=== PATIENT | female | born 1945 | race Caucasian/White ===

== ENCOUNTER 2020-08-03 12:09 | Outpatient (CLI) | payer MEDICARE, OTHER, SELFPAY ==
--- NOTE | 2020-08-03 12:20 | XRR_ITS ---
PROCEDURE INFORMATION: Exam: XR Right Hip Exam date and time: 08/03/2020 1:00 PM Age: 75 years old Clinical indication: Hip pain; Right hip; Patient HX: HX of breast cancer; Additional info: Right hip pain TECHNIQUE: Imaging protocol: XR Right hip. Views: 1 view hip with pelvis when performed. COMPARISON: No relevant prior studies available. FINDINGS: Bones/joints: Unremarkable. No acute fracture. Soft tissues: Unremarkable. XR/XR hip RT 2-3V wo/w pel* [id number] IMPRESSION: No acute findings.
--- NOTE | 2020-08-03 12:20 | XRR_ITS ---
PROCEDURE INFORMATION: Exam: XR Lumbosacral Spine Exam date and time: 08/03/2020 1:02 PM Age: 75 years old Clinical indication: Low back pain; Patient HX: HX of breast cancer; Additional info: Right knee hip pain TECHNIQUE: Imaging protocol: XR of the lumbosacral spine. Views: 2 or 3 views. COMPARISON: No relevant prior studies available. FINDINGS: Bones/joints: No acute fracture. Trace levoscoliosis. L5-S1 disc space narrowing. Soft tissues: Unremarkable. XR/XR lumbar spine 2-3V* [id number] IMPRESSION: No acute findings. Recommend follow-up bone scan or MRI if there is clinical concern for skeletal metastasis.
--- NOTE | 2020-08-03 12:20 | XRR_ITS ---
PROCEDURE INFORMATION: Exam: XR Right Knee Exam date and time: 08/03/2020 1:02 PM Age: 75 years old Clinical indication: Pain; Knee; Right; Patient HX: HX of breast cancer; Additional info: R knee pain TECHNIQUE: Imaging protocol: XR Right knee. Views: 1 or 2 views. COMPARISON: No relevant prior studies available. FINDINGS: Bones/joints: Normal. Soft tissues: Normal. XR/XR knee RT 1-2V [id number] IMPRESSION: No acute findings.
== END 2020-08-03 12:10 | disposition home or self-care (01) ==
LOC: RAD 12:16
PROVIDERS: PCP Family Medicine; Visit Provider Family Medicine
DX: M25.561 Pain in right knee (principal); M25.551 Pain in right hip; Z85.3 Personal history of malignant neoplasm of breast; M54.5 Low back pain
CPT/HCPCS: 72100; 73502; 73560

== ENCOUNTER 2020-08-09 09:11 | Outpatient (CLI) | payer MEDICARE, OTHER, SELFPAY ==
--- NOTE | 2020-08-09 09:18 | NM_ITS ---
WS: [id number] NUCLEAR MEDICINE WHOLE BODY BONE SCAN HISTORY: HX OF BREAST CANCER/R KNEE PAIN/R HIP PAIN COMPARISON: None available. TECHNIQUE: The patient was injected with 26.0 mCi of Technetium 99m HDP and serial whole-body scintig radha have been performed with anterior and posterior images. Focal intense rounded uptake within the eighth anterior LEFT rib. The remaining bone scan is negative . There are no areas of abnormal uptake or photopenia in the RIGHT lower extremity to correspond to t he area of pain. There is a small amount of increased uptake at the knees, LEFT greater than RIGHT fr om arthritis. Very mild LEFT curvature lumbar spine. Normal soft tissue and renal uptake. NM/NM bone scan whole body* [id number] IMPRESSION: 1. No evidence for metastatic disease to the RIGHT lower extremity. 2. Single focal intense uptake within the anterior LEFT eighth rib. Due to thi s single focus of abnormality favor this is probably a rib fracture. Rib radiog raphs obtained also at the same time demonstrate this is likely a healing rib f racture.
--- NOTE | 2020-08-09 11:54 | XR_ITS ---
WS: [id number] LEFT RIBS, MULTIPLE VIEWS HISTORY: BONE SCAN COMPARISON, UPTAKE IN LEFT RIB COMPARISON: Bone scan 08/09/2020. Ribs: LEFT ribs are imaged. Seen only on one view with possible healing fracture involving the anteri or LEFT eighth rib. Patient does describe trauma to this rib a few weeks ago. Lungs and mediastinum: Visualized LEFT lung is clear. Mild atherosclerosis aorta. XR/XR ribs LT 2V* [id number] IMPRESSION: 1. Abnormality in the anterior LEFT eighth rib radiographically is probably a healing rib fracture. 2. No bone destruction.
== END 2020-08-09 09:12 | disposition home or self-care (01) ==
LOC: RAD 09:16
PROVIDERS: PCP Family Medicine; Visit Provider Family Medicine
DX: Z85.3 Personal history of malignant neoplasm of breast (principal); M25.561 Pain in right knee; M25.551 Pain in right hip
CPT/HCPCS: 71100; 78306; A9561

== ENCOUNTER → 2020-08-25 08:36 | Outpatient (BNVA) | payer MEDICARE, OTHER, SELFPAY | PROVIDERS: PCP Family Medicine; Referring Provider Family Medicine; Visit Provider Specialist | DX: G89.29 Other chronic pain (principal); M25.551 Pain in right hip; M54.5 Low back pain | CPT/HCPCS: 73502 ==

== ENCOUNTER → 2020-08-26 09:34 | Outpatient (BNVA) | payer MEDICARE, OTHER, SELFPAY | PROVIDERS: PCP Family Medicine; Referring Provider Specialist; Visit Provider Anesthesiology Pain Medicine | DX: M51.17 Intervertebral disc disorders with radiculopathy, lumbosacral region (principal); Z79.891 Long term (current) use of opiate analgesic; Z85.3 Personal history of malignant neoplasm of breast | CPT/HCPCS: 99205 ==

== ENCOUNTER 2020-08-31 14:40 | Outpatient (RCR) | payer MEDICARE, OTHER, SELFPAY | END 2020-09-10 23:59 | disposition home or self-care (01) | LOC: SPT 14:40 | PROVIDERS: PCP Family Medicine; Referring Provider Specialist; Visit Provider Specialist | DX: M54.5 Low back pain (principal) | CPT/HCPCS: 97110; 97161 ==

== ENCOUNTER 2020-09-07 15:21 | Outpatient (CLI) | payer MEDICARE, OTHER, SELFPAY ==
--- NOTE | 2020-09-07 15:31 | XRR_ITS ---
PROCEDURE INFORMATION: Exam: XR Right Knee Exam date and time: 09/07/2020 3:32 PM Age: 75 years old Clinical indication: Pain; Knee; Bilateral; Additional info: Medial right knee pain TECHNIQUE: Imaging protocol: XR Right knee. Views: 3 views. COMPARISON: CR XR knee RT 1-2V [id number] 08/03/2020 12:46 PM FINDINGS: Bones/joints: Negative for acute bony abnormality Soft tissues: Normal. XR/XR knee RT 3V* [id number] IMPRESSION: No acute findings.
--- NOTE | 2020-09-07 15:31 | XRR_ITS ---
PROCEDURE INFORMATION: Exam: XR Left Knee Exam date and time: 09/07/2020 3:32 PM Age: 75 years old Clinical indication: Pain; Knee; Bilateral; Additional info: Left knee pain TECHNIQUE: Imaging protocol: XR Left knee. Views: 3 views. COMPARISON: NM bone scan whole body* [id number] 08/09/2020 9:18 AM FINDINGS: Bones/joints: Negative for acute bony abnormality. Soft tissues: Normal. XR/XR knee LT 3V* [id number] IMPRESSION: No acute findings.
== END 2020-09-07 15:22 | disposition home or self-care (01) ==
PROVIDERS: PCP Family Medicine; Visit Provider Family Medicine
DX: M25.562 Pain in left knee (principal); M25.561 Pain in right knee
CPT/HCPCS: 73562; 80048

== ENCOUNTER 2020-09-11 06:00 | Outpatient (RCR) | payer MEDICARE, OTHER, SELFPAY | END 2020-10-11 23:59 | disposition home or self-care (01) | LOC: SPT 06:00 | PROVIDERS: PCP Family Medicine; Referring Provider Specialist; Visit Provider Specialist | DX: M54.5 Low back pain (principal) | CPT/HCPCS: 97110 ==

== ENCOUNTER → 2020-09-23 10:57 | Outpatient (BNVA) | payer MEDICARE, OTHER, SELFPAY | PROVIDERS: PCP Family Medicine; Visit Provider Anesthesiology Pain Medicine | DX: M51.17 Intervertebral disc disorders with radiculopathy, lumbosacral region (principal); M51.16 Intervertebral disc disorders with radiculopathy, lumbar region; M25.561 Pain in right knee; Z79.891 Long term (current) use of opiate analgesic | CPT/HCPCS: 99214 ==

== ENCOUNTER → 2020-10-05 08:42 | Outpatient (BNVA) | payer MEDICARE, OTHER, SELFPAY | PROVIDERS: PCP Family Medicine; Visit Provider Family Medicine | DX: Z13.6 Encounter for screening for cardiovascular disorders (principal); M25.569 Pain in unspecified knee | CPT/HCPCS: 80053; 80061; 85025 ==

== ENCOUNTER → 2020-10-21 10:05 | Outpatient (BNVA) | payer MEDICARE, OTHER, SELFPAY | PROVIDERS: PCP Family Medicine; Visit Provider Anesthesiology Pain Medicine | DX: M51.16 Intervertebral disc disorders with radiculopathy, lumbar region (principal) | CPT/HCPCS: 99214 ==

== ENCOUNTER 2020-11-01 14:29 | Outpatient (CLI) | payer MEDICARE, OTHER, SELFPAY ==
--- NOTE | 2020-11-01 | MR_ITS ---
WS: [id number] MRI LUMBAR SPINE NONCONTRAST TECHNIQUE: Sagittal T1, T2 and STIR imaging. Axial T1 and T2 imaging. CLINICAL INFORMATION: INTERVERTEBRAL DISC DISORDERS COMPARISON: None. FINDINGS: Mild lumbar curve. No acute compression. No high-grade central canal narrowing. L1-L2: Mild annular bulging. Tiny left pericentral protrusion. Spinal canal and foramen are patent. M ild facet arthropathy. L2-L3: No significant disc bulging. Mild facet arthropathy. Spinal canal and foramen are patent. L3-L4: Mild annular bulging with slight effacement of ventral thecal sac. Encroachment traversing L4 nerve roots bilaterally. Mild facet arthropathy. Mild right and no significant left foraminal narrowi ng. Mild facet arthropathy. L4-L5: Mild disc bulging with slight impingement on the left subarticular recess and traversing left L5 nerve root. Mild facet arthropathy.Mild central canal stenosis. Foramen are patent. L5-S1: Small central disc protrusion with slight effacement of the ventral thecal sac. Slight impinge ment on the traversing left greater than right S1 nerve roots. Mild left and no significant right for aminal narrowing. Visualized pelvic bony structures: Normal. Paravertebral soft tissues: Normal. MR/MR lumbar spine wo con* [id number] IMPRESSION: 1. Mild lumbar curve. No acute compression. No high-grade central canal stenos is. 2. Mild central canal stenosis L3-L4 and L4-L5. 3. Left eccentric disc bulging L4-5 impinges the traversing left L5 nerve root in the subarticular recess. 4. Annular bulging L3-4 slightly impinges the traversing L4 nerve roots bilate rally. 5. Small shallow central disc protrusion L5-S1 with slight contact of the lisa ersing left S1 nerve root. Mild left L5-S1 foraminal narrowing. 6. Mild right L3-4 foraminal narrowing with right eccentric disc bulging.
== END 2020-11-01 14:30 | disposition home or self-care (01) ==
PROVIDERS: PCP Family Medicine; Visit Provider Anesthesiology Pain Medicine
DX: M51.16 Intervertebral disc disorders with radiculopathy, lumbar region (principal); M48.061 Spinal stenosis, lumbar region without neurogenic claudication; M51.26 Other intervertebral disc displacement, lumbar region; M51.27 Other intervertebral disc displacement, lumbosacral region
CPT/HCPCS: 72148

== ENCOUNTER → 2020-11-18 13:06 | Outpatient (BNVA) | payer MEDICARE, OTHER, SELFPAY | PROVIDERS: PCP Family Medicine; Visit Provider Anesthesiology Pain Medicine | DX: M51.16 Intervertebral disc disorders with radiculopathy, lumbar region (principal); M25.561 Pain in right knee; M25.562 Pain in left knee | CPT/HCPCS: 99214 ==

== ENCOUNTER → 2021-03-29 13:54 | Outpatient (BNVA) | payer MEDICARE, OTHER, SELFPAY | PROVIDERS: PCP Family Medicine; Visit Provider Family Medicine | DX: G31.84 Mild cognitive impairment of uncertain or unknown etiology (principal) | CPT/HCPCS: 82607; 84443 ==

== ENCOUNTER → 2021-05-11 08:37 | Outpatient (BNVA) | payer MEDICARE, OTHER, SELFPAY | PROVIDERS: PCP Family Medicine; Visit Provider Podiatrist Foot & Ankle Surgery | DX: M79.671 Pain in right foot (principal) | CPT/HCPCS: 73630 ==

== ENCOUNTER 2021-11-28 10:18 | Outpatient (CLI) | payer MEDICARE, OTHER, SELFPAY ==
--- NOTE | 2021-11-28 10:30 | CT_ITS ---
WS: [id number] CT HEAD NONCONTRAST HISTORY: cognitive impairment TECHNIQUE: Contiguous axial imaging performed through the brain in 2.5 mm imaging. Bone and soft tiss ue windows. Sagittal and coronal reformats reviewed. All CT scans at [facility] use at least one of these dose optimization techniques: automated exposure control; mA and/or kV adjustment per pa tient size (includes targeted exams where dose is matched to clinical indication); or iterative recon struction. DLP: 827.21 mGy.cm COMPARISON: None available. No acute intracranial hemorrhage, midline shift or mass effect. Mild atrophy and mild to moderate small vessel ischemic disease. Small lacunar infarct in anterior li mb LEFT internal capsule. Small lacunar infarct inferior LEFT basal ganglia versus perivascular space . Ventricles: Mild enlargement of the ventricles. No inferior displacement of cerebellar tonsils. Paranasal sinuses: As visualized are clear. Mastoid air cells: Well pneumatized. Calvarium and scalp: Skull is intact with no soft tissue edema or swelling. CT/CT head wo con* [id number] IMPRESSION: 1. No acute intracranial hemorrhage or edema. 2. Mild atrophy and mild to moderate small vessel ischemic disease.
== END 2021-11-28 10:19 | disposition home or self-care (01) ==
LOC: RAD 10:20
PROVIDERS: PCP Family Medicine; Visit Provider Family Medicine
DX: G31.84 Mild cognitive impairment of uncertain or unknown etiology (principal)
CPT/HCPCS: 70450

== ENCOUNTER 2022-11-16 13:22 | Outpatient (CLI) | payer MEDICARE, OTHER, SELFPAY ==
--- NOTE | 2022-11-16 13:36 | XR_ITS ---
WS: [id number] SCREENING DEXA SCAN AWAK CLINICAL INFORMATION: OSTEOPOROSIS/HTN COMPARISON: 2019 FINDINGS: The L1-L4 bone mineral density measures 0.911 g/cm2. This corresponds to a T score score of -2.2 and Z score of -1.3. Left femoral neck bone mineral density measures 0.751 g/cm2. This corresponds to a T score of -2.0 an d Z score of -0.7. Right femoral neck bone mineral density measures 0.791 g/cm2. This corresponds to a T score -1.7of an d Z score of -0.4. Mean femoral neck bone mineral density measures 0.771 g/cm2. This corresponds to a T score of -1.9 an d Z score of -0.5. XR/XR DEXA axial skeleton* [id number] IMPRESSION: Osteopenia lumbar spine. Osteopenia femoral necks. Patient's FRAX calculated 10 year probability for major osteoporotic fracture i s 26.9 % and osteoporotic hip fracture is 8.9%. Bone mineral density in the lumbar spine has increased in 10.3% since 2019. Bone mineral density in the femoral necks increased 2.3% since 2019.
== END 2022-11-16 13:23 | disposition home or self-care (01) ==
LOC: RAD 13:25
PROVIDERS: PCP Family Medicine; Visit Provider Family Medicine
DX: M81.0 Age-related osteoporosis without current pathological fracture (principal); R03.0 Elevated blood-pressure reading, without diagnosis of hypertension; M85.89 Other specified disorders of bone density and structure, multiple sites
CPT/HCPCS: 77080

== ENCOUNTER 2024-03-09 00:12 | Emergency (ER) | payer MEDICARE, OTHER, SELFPAY ==
[2024-03-09 00:16] VITALS: BP 149/89; PULSE 74; RESP 20; TEMP 36.4; O2SAT 96; BMI 31.1
--- NOTE | 2024-03-09 02:54 | XRR_ITS ---
PROCEDURE INFORMATION: Exam: XR Left Knee Exam date and time: 03/09/2024 3:08 AM Age: 78 years old Clinical indication: Patient HX: C/O left knee pain. No injury. TECHNIQUE: Imaging protocol: Radiologic exam of the left knee. Views: 1 or 2 views. COMPARISON: CR XR knee LT 3V* [id number] 07/09/2020 15:37 FINDINGS: Bones/joints: The alignment of the joints is anatomic. The joint spaces are maintained. There is no evidence of acute fracture. There is a mild suprapatellar effusion. There is a small marginal osteophyte on the upper pole of the patella. Soft tissues: No radiopaque foreign body. There is calcification of the menisci. XR/XR knee LT 1-2V [id number] IMPRESSION: 1. A small suprapatellar effusion. 2. Chondrocalcinosis.
--- NOTE | 2024-03-09 02:54 | XRR_ITS ---
PROCEDURE INFORMATION: Exam: XR Right Knee Exam date and time: 03/09/2024 3:03 AM Age: 78 years old Clinical indication: Right; Patient HX: C/O RT knee pain. No injury. TECHNIQUE: Imaging protocol: Radiologic exam of the right knee. Views: 1 or 2 views. COMPARISON: CR XR knee RT 3V* [id number] 07/09/2020 15:37 FINDINGS: Bones/joints: The alignment of the joints is anatomic. The joint spaces are maintained. There is no evidence of acute fracture. Small suprapatellar effusion. There are a small marginal osteophyte and an enthesophyte on the upper pole of the patella. Soft tissues: No radiopaque foreign body. There is soft tissue swelling. XR/XR knee RT 1-2V [id number] IMPRESSION: 1. A small suprapatellar effusion. 2. Mild degenerative changes of the patellofemoral joint. 3. Enthesophyte on the upper pole of the patella.
[2024-03-09] MEDS: ketorolac 10 mg Tablet PO (03:06)
--- NOTE | 2024-03-09 03:17 | ED_ITS ---
HPI - Extremity Problem General: Chief complaint: Extremity Injury, Lower Stated complaint: Knee pain Time Seen by Provider: 03/09/24 02:44 History of Present Illness: 78-year-old female presenting by ambulan malu this morning for which she says is bilateral knee pain. She denies any injury. She says her knees hurt her for years. For the last 3 days her knee pain has been worse. She can ambulate she says, but has pain when her knees are in certain position, and with weightbeari ng activity to some degree. She denies any fever. She denies other illness. She denies other pain. Related Data Home Medications Medication Instructions Recorded Confirmed B-complex with vitamin C (Super B 1 tab PO DAILY 08/26/20 08/10/21 Complex-Vitamin C tablet) ascorbic acid (vitamin C) 1,000 mg 2 g PO DAILY 08/26/20 08/10/21 tablet brimonidine 0.2 %-timolol 0.5 % 1 drp ophthalmic (eye) BID 08/26/20 08/10/21 eye drops (Combigan) cetirizine 10 mg tablet (Zyrtec) 5 mg PO DAILY PRN 08/26/20 08/10/21 rsmgzkfpdsg-nzf-farlqlhyz-hrb tab PO 08/26/20 08/10/21 149-hyalur 500 mg-500 mg-66.7 mg tablet (Rkefyuxoyvy-Incalahxlfm-CTG (with antiox)) multivitamin 1 tab PO DAILY 08/26/20 08/10/21 calcium carbonate (Tums) 300 mg PO DAILY 09/07/20 08/10/21 propylene glycol 0.6 % eye drops 1 drp ophthalmic (eye) DAILY PRN 09/07/20 08/10/21 (Systane Balance) brinzolamide 1 % eye 1 drp ophthalmic (eye) TID 01/31/21 08/10/21 drops,suspension (Azopt) Previous Rx's Medication Instructions Recorded donepezil 5 mg tablet (Aricept) 5 mg PO DAILY #90 tabs 07/26/21 ketoconazole 2 % shampoo 1 applic topical ONCE #120 mL 03/20/22 ketorolac 10 mg tablet 10 mg PO TID PRN pain #10 tabs 03/09/24 Allergies Allergy/AdvReac Type Severity Reaction Status Date / Time No Known Allergies Allergy Verified 03/09/24 00:22 [facility] PFSH: Medical History Osteoporosis Breast cancer Glaucoma GERD (gastroesophageal reflux disease) Dry eyes Surgical History History of tonsillectomy H/O repair of rotator cuff Right H/O mastectomy Bilateral Family History Mother Psychiatric illness Father CAD (coronary artery disease) History of stomach ulcers Social History Smoking and tobacco/nicotine status: never used tobacco/nicotine Second hand smoke exposure: No Alcohol intake: former Substance/Drug Use: never Physical Exam Const: COMMON NORMALS: no acute distress GENERAL APPEARANCE: cooperative, well kempt and frail appearing (Minimally); not ill appearing ORIENTATION/CONSCIOUSNESS: Yes awake, Yes oriented to person, Yes oriented to place and Yes confused (Mildly); not oriented to time HENMT: COMMON NORMALS: normocephalic, atraumatic and Normal external nose pr esent HEAD & SCALP: normocephalic and atraumatic FACE & SINUS: normal facial exam and face symmetric NOSE: Normal external nose present Eye: COMMON NORMALS: Equal, round and reactive pupils present and EOMs intact bilaterally PUPIL: Yes Equal, round and reactive pupils present Neck/C-Spine: GENERAL: Yes trachea midline Chest: CHEST: Yes Symmetrical chest wall rise Resp: COMMON NORMALS: normal respiratory effort, No retractions, No use of accessory muscles and clear to auscultation bilaterally AUSCULTATION: clear to auscultation bilaterally Cardio: COMMON NORMALS: regular rate and regular rhythm RATE: regular rate RHYTHM: regular rhythm GI: COMMON NORMALS: Normal to inspection, nondistended, normoactive bowel sounds present Extremity: COMMON NORMALS: no pedal edema NARRATIVE EXTREMITY EXAM: Examination of the bilateral knees reveals bilateral knee joint effusions that are small. There is tenderness to palpation of the medial joint line as well as the patellar facets. There are no deformities. No warmth, no rash. Neuro: TERRY COMA SCALE: document GCS findings Terry coma scale eye opening: Spontaneous Terry coma scale verbal response: Orientated [place] coma scale motor response: Obey commands [place] coma scale total score: 15 SENSORIUM/ORIENTATION: Yes oriented to person, Yes oriented to place and No oriented to time SENSORY EXAM: Yes extremities (intact) Psych: COMMON NORMALS: speech normal APPEARANCE: Yes well kempt SPEECH: Yes normal speech Skin: COMMON NORMALS: no rashes or lesions noted GENERAL SKIN EXAM: no rashes or lesions noted Course Vital Signs: Vital signs: Vital Signs Temperature 97.6 F 03/09/24 00:16 Pulse Rate 72 03/09/24 08:34 Respiratory Rate 20 H 03/09/24 00:16 Blood Pressure 176/78 03/09/24 08:34 Pulse Oximetry 97 03/09/24 08:34 Oxygen Delivery Me thod Room Air 03/09/24 00:16 MDM - Extremity (Nontraumatic) Medical Decision Making This is a mildly confused patient who is otherwise alert and pleasant. She has bilateral knee pain and tenderness. X-rays do not reveal fracture. There are mild effusions with osteoarthritic change both sides. I am somewhat unclear with the chronic nature of her knee condition as to why she is here presenting at midnight for knee pain. There was some concern expressed over the phone by family as she has a history of dementia. This is clear on exam, but there are no specific neurological findings, save some mild confusion. She is given oral Toradol here. She will be given a very short course of oral Toradol as a prescription for knee osteoarthritic pain. Case management has been asked to get this patient a follow-up appointment. She will return for any new or worsening symptoms Lab Data Radiology Impressions Knee X-Ray 03/09/24 02:54 IMPRESSION: 1. A small suprapatellar effusion. 2. Chondrocalcinosis. All radiology interpretation(s) finalized by discharge Discharge Plan Discharge Patient Disposition: Home Clinical Impression: Effusion of both knee joints, Osteoarthritis of knees, bilateral Condition: Stable Prescriptions: New ketorolac 10 mg tablet 10 mg PO TID PRN (Reason: pain) Qty: 10 0RF No Action Combigan 0.2-0.5 % drops 1 drp ophthalmic (eye) BID cetirizine [Zyrtec] 10 mg tablet 5 mg PO DAILY PRN multivitamin Tablet 1 tab PO DAILY B-complex with vitamin C [Super B Complex-Vitamin C] Tablet 1 tab PO DAILY ascorbic acid (vitamin C) 1,000 mg tablet 2 g PO DAILY [id number]-hcf-[id number] [Dhhxoy-Zqhzm-TGY (with antiox)] 500-500-66.7 mg tablet PO Azopt 1 % drops,suspension 1 drp ophthalmic (eye) TID calcium carbonate [Tums] 300 mg (750 mg) tablet,chewable 300 mg PO DAILY Systane Balance 0.6 % drops 1 drp ophthalmic (eye) DAILY PRN ketoconazole 2 % shampoo 1 applic topical ONCE Qty: 120 6RF Rx Instructions: Lather into scalp 2-3 times weekly. Allow to sit on scalp 5 minutes before rinsing donepezil [Aricept] 5 mg tablet 5 mg PO DAILY Qty: 90 0RF Discharge Orders: Discharge ED (Routine); Ordered 03/09/24 Ordered By: Twin Wiley Referrals: Haydee Cruz DO [Primary Care Provider] - 1-3 days Patient Instructions: Osteoarthritis (ED), Swollen Knee Joint (ED), Opioid Safety, Pain Management Activity Restrictions/Additional Instructions: Ice can help pain and swelling to your knees. Medication as needed as directed. See your doctor this week regarding your knees. Sometimes physical therapy as an outpatient can help which can be prescribed to you. Coding Level of Care Code ED Infrastructure Manager for [facility]
[2024-03-09 08:34] VITALS: BP 176/78; PULSE 72; O2SAT 97
--- NOTE | 2024-03-10 09:36 | DCPLANNER ---
Message sent to Clinics for PCP- Follow up
== END 2024-03-09 08:37 | disposition home or self-care (01) ==
PROVIDERS: Emergency Provider Emergency Medicine; PCP Family Medicine
DX: M25.462 Effusion, left knee (principal); M25.461 Effusion, right knee; M17.0 Bilateral primary osteoarthritis of knee
CPT/HCPCS: 73560; 99283

== ENCOUNTER 2024-03-10 05:57 | Emergency (ER) | payer MEDICARE, OTHER, SELFPAY ==
[2024-03-10 06:08] VITALS: BP 175/125; PULSE 74; RESP 20; TEMP 37; O2SAT 96; BMI 31.1
--- NOTE | 2024-03-10 06:21 | XRR_ITS ---
PROCEDURE INFORMATION: Exam: XR Chest Exam date and time: 03/10/2024 7:14 AM Age: 78 years old Clinical indication: Other: Weakness TECHNIQUE: Imaging protocol: Radiologic exam of the chest. Views: 1 view. COMPARISON: NM bone scan whole body* [id number] 08/09/2020 9:18 AM FINDINGS: Lungs: Unremarkable. No consolidation. Pleural spaces: Unremarkable. No pleural effusion. No pneumothorax. Heart/Mediastinum: The heart size is not well assessed. Bones/joints: Unremarkable. XR/XR chest 1V portable [id number] IMPRESSION: No evidence of acute pulmonary process.
--- NOTE | 2024-03-10 06:23 | CTR_ITS ---
PROCEDURE INFORMATION: Exam: CT Head Without Contrast Exam date and time: 03/10/2024 6:40 AM Age: 78 years old Clinical indication: Injury or trauma; Blunt trauma (contusions or hematomas); Patient HX: EMS arrival from home for multiple falls over the last two days. History of dementia. ; Additional info: Fall TECHNIQUE: Imaging protocol: Computed tomography of the head without contrast. Radiation optimization: All CT scans at this facility use at least one of these dose optimization techniques: automated exposure control; mA and/or kV adjustment per patient size (includes targeted exams where dose is matched to clinical indication); or iterative reconstruction. COMPARISON: CT head wo con* [id number] 11/28/2021 10:23 AM RADIATION DOSE METRICS: Total DLP (mGy-cm): 999.3 FINDINGS: Brain: There is mild to moderate small vessel disease. There is no evidence of acute parenchymal hemorrhage, extra-axial collection, or acute infarction. There is no mass effect, midline shift, or downward herniation. Cerebral ventricles: No ventriculomegaly. Paranasal sinuses: Visualized sinuses are unremarkable. No fluid levels. Mastoid air cells: Visualized mastoid air cells are well aerated. Bones: Unremarkable. No acute fracture. Soft tissues: Unremarkable. CT/CT head wo con* [id number] IMPRESSION: Yjlo-pp-xhvpyzye small vessel disease. No evidence of acute intracranial process.
--- NOTE | 2024-03-10 06:23 | XRR_ITS ---
PROCEDURE INFORMATION: Exam: XR Left Knee Exam date and time: 03/10/2024 7:14 AM Age: 78 years old Clinical indication: Injury or trauma; Fall; Blunt trauma; Knee; Left TECHNIQUE: Imaging protocol: Radiologic exam of the left knee. Views: 3 views. COMPARISON: CR (LOW EXM, ) 03/09/2024 3:08 AM FINDINGS: Bones/joints: There is no evidence of fracture or dislocation. There is chondrocalcinosis noted. Otherwise the joint spaces are preserved. Soft tissues: Normal. XR/XR knee LT 3V* [id number] IMPRESSION: No evidence of fracture.
[2024-03-10 06:47] LABS: Basophils # 0.1 10^3/uL (0.0-0.1); Basophils % 0.5 %; Eosinophils # 0.1 10^3/uL (0.0-0.8); Eosinophils % 0.7 %; Hematocrit 38.5 % (36-47); Lymphocytes # 1.8 10^3/uL (0.8-4.8); Mean Corpuscular HGB Conc 32.2 g/dL (30-55); Mean Corpuscular Hemoglobin 30.2 pg (27-33); Mean Corpuscular Volume 93.9 fl (85-98); Mean Platelet Volume 10.4 fL (7.4-10.4); Monocytes # 0.9 10^3/uL (0.2-0.9); Monocytes % 8.7 %; Neutrophils # 7.31 10^3/uL (1.8-7.7); Neutrophils % 71.8 %; Nucleated Red Blood Cells % 0 %; Platelet Count 261 10^3/cmm (157-399); Red Cell Distribution Width 13.4 % (12.1-15.1); White Blood Count 10.17 10^3/uL (3.29-11.43)
[2024-03-10 06:58] LABS: Alanine Aminotransferase 18 U/L (0-33); Albumin Level 3.5 g/dL (3.5-5.2); Alkaline Phosphatase 83 U/L (35-105); Anion Gap 13.5 (5-19); Aspartate Amino Transferase 27 U/L (0-32); Blood Urea Nitrogen 15 mg/dL (8-23); Calcium 8.4 mg/dL (8.5-10.5); Carbon Dioxide 26 mmol/L (22-29); Chloride 105 mmol/L (98-107); Creatinine Clr Calc Pharmacy 53.9258; Globulin 3.3 g/dL (1.3-4.6); Glucose 118 mg/dL (65-115); Osmolality Calculated 294 mOsm/kg (285-295); Potassium 3.5 mmol/L (3.5-5.1); Sodium 141 mmol/L (136-145); Total Bilirubin 0.7 mg/dL (0.15-1.2); Total Protein 6.8 g/dL (6.6-8.7)
[2024-03-10 07:00] LABS: Creatine Phosphokinase 402 U/L (26-192)
[2024-03-10 07:02] VITALS: BP 161/76; PULSE 72; RESP 16; O2SAT 96
--- NOTE | 2024-03-10 07:02 | ED_ITS ---
HPI - Fall 2 General: Chief Complaint: Fall Stated Complaint: FALL Time Seen by Provider: 03/10/24 06:20 History of Present Illness: 78-year-old female presents emergency ro om complaining of weakness. 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 She states she had fallen at least 5 times in the last couple of days. She is complaining of arthritic knee pain. They are looking at trying to get her into a senior living. Patient was unable to stand but was able to ambulate once she was up. On arrival here she is complaining of left knee pain generalized weakness she denies abdominal pain or chest pain denies dysuria urgency or frequency. She has no shortness of breath or chest pain. She denies any orthopnea. She does have 2+ edema to the lower extremities bilaterally which is chronic. Associated symptoms-after fall: Denies abdominal pain, chest pain or neck pain Related Data Home Medications Medication Instructions Recorded Confirmed ascorbic acid (vitamin C) 1,000 mg 2 g PO DAILY 08/26/20 03/10/24 tablet brimonidine 0.2 %-timolol 0.5 % 1 drp ophthalmic (eye) BID 08/26/20 03/10/24 eye drops (Combigan) iazmpcmincr-uhj-lstwcdjyq-hrb 1 tab PO BID 08/26/20 03/10/24 149-hyalur 500 mg-500 mg-66.7 mg tablet (Urjkmacfsxp-Vignzxptmkx-AJI (with antiox)) multivitamin 1 tab PO DAILY 08/26/20 03/10/24 calcium carbonate (Tums) 300 mg PO DAILY 09/07/20 03/10/24 propylene glycol 0.6 % eye drops 1 drp ophthalmic (eye) DAILY PRN 09/07/20 03/10/24 (Systane Balance) Dry Eyes brinzolamide 1 % eye 1 drp ophthalmic (eye) TID 01/31/21 03/10/24 drops,suspension (Azopt) B-complex with vitamin C 1 cap PO DAILY 03/10/24 03/10/24 Previous Rx's Medication Instructions Recorded ketorolac 10 mg tablet 10 mg PO TID PRN pain #10 tabs 03/09/24 Allergies Allergy/AdvReac Type Severity Reaction Status Date / Time No Known Allergies Allergy Verified 03/09/24 00:22 Review of Systems 2 Const: Denies: fever(s) or chills Card: Reports: edema and swelling of feet/ankles (Chronic); Denies: chest pain Resp: Denies: dyspnea GI: Denies: abdominal pain : Denies: dysuria, urinary frequency or urinary urgency Musc: Denies: neck pain or back pain Skin/Breast: Denies: rash PFSH ED 2 PFSH: Medical History Osteoporosis Breast cancer Glaucoma GERD (gastroesophageal reflux disease) Dry eyes Surgical History History of tonsillectomy H/O repair of rotator cuff Right H/O mastectomy Bilateral Family History Mother Psychiatric illness Father CAD (coronary artery disease) History of stomach ulcers Social History Smoking and tobacco/nicotine status: never used tobacco/nicotine Second hand smoke exposure: No Alcohol intake: former Substance/Drug Use: never Physical Exam 2 Const: COMMON NORMALS: no acute distress GENERAL APPEARANCE: cooperative and comfortable ORIENTATION/CONSCIOUSNESS: Yes awake HENMT: COMMON NORMALS: normocephalic, atraumatic and hearing grossly normal bilaterally HEAD & SCALP: normocephalic and atraumatic Resp: COMMON NORMALS: normal respiratory effort, No retractions, No use of accessory muscles and clear to auscultation bilaterally AUSCULTATION: clear to auscultation bilaterally Cardio: COMMON NORMALS: regular rate, regular rhythm and No murmurs present (Cardio) RATE: regular rate RHYTHM: regular rhythm GI: COMMON NORMALS: Soft to palpation and No hepatosplenomegaly present A USCULTATION: Yes normoactive bowel sounds PALPATION: Yes Soft to palpation, No Tenderness to palpation present (GI), No Guarding due to palpation present (GI) and Yes No hepatosplenomegaly present Extremity: COMMON NORMALS: normal to inspection, capillary refill normal and no calf tenderness Skin: COMMON NORMALS: no rashes or lesions noted GENERAL SKIN EXAM: no rashes or lesions noted Course 2 Vital Signs: Vital signs: Vital Signs Temperature 98.6 F 03/10/24 06:08 Pulse Rate 79 03/10/24 12:07 Respiratory Rate 16 03/10/24 12:07 Blood Pressure 170/84 03/10/24 12:07 Pulse Oximetry 97 03/10/24 12:07 Oxygen Delivery Me thod Room Air 03/10/24 12:07 MDM - Fall Medical Decision Making Extended ER stay significant amount of imaging was done reviewed was all negative I was questioning a small fracture on the proximal fibula on the oblique view and this plain film radiology did not read as such however patient had pain in that region CT was done they did not read a fracture in that area. Patient is able to ambulate but is difficult time getting up initially. She is awake and alert she is very disagreeable throughout her ER stay was verbally abusive to the nursing staff and argumentative each time staff tried to assuage her concerns. We did contact her son. After an extended ER stay we were able to get her placed at the senior living she was discharged to [facility]. Medical Records I reviewed the patient's medical records. Lab Data I reviewed the patient's lab results. 03/10/24 06:35 03/10/24 06:35 Radiology Impressions Chest X-Ray 03/10/24 06:21 IMPRESSION: No evidence of acute pulmonary process. Head CT 03/10/24 06:23 IMPRESSION: Tjjk-yr-jvgcgutf small vessel disease. No evidence of acute intracranial process. Ankle X-Ray 03/10/24 07:31 IMPRESSION: 1. No evidence of acute fracture. 2. Extensive subcutaneous edema. Knee X-Ray 03/10/24 07:31 IMPRESSION: No evidence of fracture. Pelvis X-Ray 03/10/24 07:31 IMPRESSION: No evidence of acute fracture. Knee CT 03/10/24 09:12 IMPRESSION: 1. No definite acute fracture is identified. 2. There is a very slight change in the cortex along the anterior medial femoral condyle which is indeterminate. Low-level suspicion for fracture. If there is continued nonweightbearing and suspicion consider MRI evaluation to evaluate for acute marrow edema. 3. Moderate suprapatellar joint effusion. Laboratory Results WBC 10.17 10^3/uL (3.29-11.43) 03/10/24 06:35 RBC 4.10 10^6/uL (3.85-5.65) 03/10/24 06:35 Hgb 12.40 g/dL (11.27-16.99) 03/10/24 06:35 Hct 38.5 % (36-47) 03/10/24 06:35 MCV 93.9 fl (85-98) 03/10/24 06:35 MCH 30.2 pg (27-33) 03/10/24 06:35 MCHC 32.2 g/dL (30-55) 03/10/24 06:35 RDW 13.4 % (12.1-15.1) 03/10/24 06:35 Plt Count 261 10^3/cmm (157-399) 03/10/24 06:35 MPV 10.4 fL (7.4-10.4) 03/10/24 06:35 Neut % (Auto) 71.8 % 03/10/24 06:35 Lymph % (Auto) 18.0 % 03/10/24 06:35 [place] % (Auto) 8.7 % 03/10/24 06:35 Eos % (Auto) 0.7 % 03/10/24 06:35 Baso % (Auto) 0.5 % 03/10/24 06:35 Neut # (Auto) 7.31 10^3/uL (1.8-7.7) 03/10/24 06:35 Lymph # (Auto) 1.8 10^3/uL (0.8-4.8) 03/10/24 06:35 [place] # (Auto) 0.9 10^3/uL (0.2-0.9) 03/10/24 06:35 Eos # (Auto) 0.1 10^3/uL (0.0-0.8) 03/10/24 06:35 Baso # (Auto) 0.1 10^3/uL (0.0-0.1) 03/10/24 06:35 Nucleated RBC % (auto) 0 % 03/10/24 06:35 Nucleated RBCs # 0.0 /100WBC 03/10/24 06:35 Sodium 141 mmol/L (136-145) 03/10/24 06:35 Potassium 3.5 mmol/L (3.5-5.1) 03/10/24 06:35 Chloride 105 mmol/L (98-107) 03/10/24 06:35 Carbon Dioxide 26 mmol/L (22-29) 03/10/24 06:35 Anion Gap 13.5 (5-19) 03/10/24 06:35 BUN 15 mg/dL (8-23) 03/10/24 06:35 Creatinine 0.7 mg/dL (0.5-0.9) 03/10/24 06:35 GFR Calculation Not Reportable 03/10/24 06:35 Glucose 118 mg/dL (65-115) H 03/10/24 06:35 Calculated Osmolality 294 mOsm/kg (285-295) 03/10/24 06:35 Calcium 8.4 mg/dL (8.5-10.5) L 03/10/24 06:35 Magnesium 2.0 mg/dL (1.7-2.3) 03/10/24 06:35 Total Bilirubin 0.7 mg/dL (0.15-1.2) 03/10/24 06:35 AST 27 U/L (0-32) 03/10/24 06:35 ALT 18 U/L (0-33) 03/10/24 06:35 Alkaline Phosphatase 83 U/L (35-105) 03/10/24 06:35 Creatine Kinase 402 U/L (26-192) H* 03/10/24 06:35 Total Protein 6.8 g/dL (6.6-8.7) 03/10/24 06:35 Albumin 3.5 g/dL (3.5-5.2) 03/10/24 06:35 Globulin 3.3 g/dL (1.3-4.6) 03/10/24 06:35 All radiology interpretation(s) finalized by discharge Discharge Plan Discharge Patient Disposition: Home Clinical Impression: Medial knee pain, Lumbar pain, Frequent falls Condition: Stable Prescriptions: No Action Combigan 0.2-0.5 % drops 1 drp ophthalmic (eye) BID multivitamin Tablet 1 tab PO DAILY ascorbic acid (vitamin C) 1,000 mg tablet 2 g PO DAILY bccboqkd-dpm-yakha-[id number]-pkkc [Rdthom-Dmyby-LJN (with antiox)] 500-500-66.7 mg tablet 1 tab PO BID Azopt 1 % drops,suspension 1 drp ophthalmic (eye) TID calcium carbonate [Tums] 300 mg (750 mg) tablet,chewable 300 mg PO DAILY Systane Balance 0.6 % drops 1 drp ophthalmic (eye) DAILY PRN (Reason: Dry Eyes) ketorolac 10 mg tablet 10 mg PO TID PRN (Reason: pain) Qty: 10 0RF B-complex with vitamin C [Vitamin B Complex With C] Capsule 1 cap PO DAILY Discharge Orders: Discharge ED (Routine); Ordered 03/10/24 Ordered By: Kontsantin Garcia Referrals: Haydee Cruz DO [Primary Care Provider] - Discharge Diet: Usual diet Discharge Activity: Resume usual activity Patient Instructions: Opioid Safety, Pain Management Activity Restrictions/Additional Instructions: Thank you for choosing [facility] for your healthcare needs today. It is very important that you follow up as instructed or that you return to the Emergency Department should you have concerns or if your condition changes or worsens in any way. You were seen in the emergency room after multiple falls your lower extremities were x-rayed. Your laboratory tests showed a slightly elevated CPK which is likely from the falls and being sedentary. We had recommended that you go to the senior living which you declined. They are still reviewing at the senior living if your family or you would wish to go that route you can be admitted to the senior living by your primary care doctor from an outpatient status. X-rays done in the emergency room were all normal. Coding Level of Care Code ED Wire Stripper for Angeles Tyson
--- NOTE | 2024-03-10 07:02 | PC.NURSE ---
THIS NURSE ASSUMED CARE AT 0700.
--- NOTE | 2024-03-10 07:30 | XRR_ITS ---
PROCEDURE INFORMATION: Exam: XR Left Ankle Exam date and time: 03/10/2024 7:54 AM Age: 78 years old Clinical indication: Injury or trauma; Fall; Blunt trauma; Ankle; Left TECHNIQUE: Imaging protocol: Radiologic exam of the left ankle. Views: 3 or more views. COMPARISON: NM bone scan whole body* [id number] 08/09/2020 9:18 AM FINDINGS: Bones/joints: There is no evidence of fracture or dislocation. The joint spaces are preserved. There is a small heel spur noted. Soft tissues: There is extensive subcutaneous edema. XR/XR ankle LT min 3V* [id number] IMPRESSION: 1. No evidence of acute fracture. 2. Extensive subcutaneous edema.
--- NOTE | 2024-03-10 07:31 | XRR_ITS ---
PROCEDURE INFORMATION: Exam: XR Pelvis Exam date and time: 03/10/2024 7:45 AM Age: 78 years old Clinical indication: Injury or trauma; Fall; Blunt trauma (contusions or hematomas); Bilateral; Pelvic region TECHNIQUE: Imaging protocol: Radiologic exam of the pelvis. Views: 1 or 2 view. COMPARISON: CR XR hip RT 2-3V wo/w pel* [id number] 08/25/2020 8:43 AM FINDINGS: Bones/joints: There is no evidence of acute fracture. There is mild bilateral hip osteoarthritis. Soft tissues: Unremarkable. XR/XR pelvis 1-2V* [id number] IMPRESSION: No evidence of acute fracture.
--- NOTE | 2024-03-10 07:31 | XRR_ITS ---
PROCEDURE INFORMATION: Exam: XR Right Ankle Exam date and time: 03/10/2024 7:50 AM Age: 78 years old Clinical indication: Injury or trauma; Fall; Blunt trauma; Ankle; Right TECHNIQUE: Imaging protocol: Radiologic exam of the right ankle. Views: 3 or more views. COMPARISON: NM bone scan whole body* [id number] 08/09/2020 9:18 AM FINDINGS: Bones/joints: There is no evidence of acute fracture. The joint spaces are preserved. There is a small heel spur noted. Soft tissues: There is extensive subcutaneous edema. XR/XR ankle RT min 3V* [id number] IMPRESSION: 1. No evidence of acute fracture. 2. Extensive subcutaneous edema.
--- NOTE | 2024-03-10 07:31 | XRR_ITS ---
PROCEDURE INFORMATION: Exam: XR Right Knee Exam date and time: 03/10/2024 7:48 AM Age: 78 years old Clinical indication: Injury or trauma; Fall; Blunt trauma; Knee; Right TECHNIQUE: Imaging protocol: Radiologic exam of the right knee. Views: 3 views. COMPARISON: CR (LOW EXM, ) 03/09/2024 3:03 AM FINDINGS: Bones/joints: There is no evidence of acute fracture. There is minimal periarticular spurring noted. Otherwise the joint spaces are preserved. Soft tissues: Normal. XR/XR knee RT 3V* [id number] IMPRESSION: No evidence of fracture.
--- NOTE | 2024-03-10 08:03 | ECG_ITS ---
[facility] 2024-03-10 Pat Name: Kirstie Cunningham Department: Room: Gender: Female Blood Donor Recruiter: : 1945 Requested By: Konstantin Sanabria Order Number: [id number] Jahaira MD: Yung Gerardo M.D. Measurements Intervals [place] Rate: 70 P: 69 NM: 200 QRS: 57 QRSD: 93 T: 170 QT: 436 QTc: 471 Interpretive Statements SINUS RHYTHM LEFT VENTRICULAR HYPERTROPHY AND ST-T CHANGE [VOLTAGE CRITERIA PLUS ST/T ABNORMALITY] No previous ECG available for comparison Electronically Signed On 03-11-2024 00:03:21 CDT by Yung Gerardo M.D. [email or web address]
--- NOTE | 2024-03-10 08:18 | PC.NURSE ---
PATIENT STATES WE ARE NOT ALLOWED TO TOUCH HER. I WILL PRODUCE MY OWN URINE. PATIENT BECOMING AGITATED DUE TO NEEDING REASON FOR URINE. THIS NURSE AND BARAK, CRYSTAL EVALUATOR, EXPLAIN TO PATIENT THAT FREQUENT FALLS CAN BE CAUSED BY UTI. PATIENT STATES I DON'T HAVE A UTI. THE SYMPTOMS ARE VERY DIFFERENT. PROVIDER NOTIFIED.
--- NOTE | 2024-03-10 08:31 | PC.NURSE ---
SON STATES THAT WHEN PATIENT IS LUCID THE PATIENT WOULD LIKE TO GO TO A DETENTION. SON STATES THAT SHE WAS DIAGNOSED WITH DEMENTIA APPROXIMATELY 12 MONTHS AGO AND IT HAS PROGRESSED FASTER THAT WHAT WAS EXPECTED. SON STATES PATIENT HAS HAD INCREASED AGGRESSION. SON STATES THAT HE IS PATIENTS POWER OF CHIEF OF POLICE AND THAT THE HOSPITAL SHOULD HAVE IT IN THE FILE HERE. PROVIDER NOTIFIED.
--- NOTE | 2024-03-10 09:12 | CT_ITS ---
WS: [id number] CT LEFT KNEE, NONCONTRAST HISTORY: L knee pain, fall, difficult stand Technique: All CT scans at [facility] use at least one of these dose optimization techniques: automated exposure control; mA and/or kV adjustment per patient size (includes targeted exams where dose is matched to clinical indication); or iterative reconstruction. DLP: 307.41 mGy.cm COMPARISON: None available. Mild tricompartment osteoarthritis. No acute fractures identified. There is a very tiny interruption in the anterior cortex of the medial femoral condyle. Indeterminate for incomplete/occult fracture. T here is a well-circumscribed osseous fragment in the lateral patellofemoral joint space which is prob ably an osteophyte. There is a moderate-sized joint effusion at the knee. Soft tissue edema is mild with muscle atrophy. Small Mccarty's cyst. There is also chondrocalcinosis in the medial and lateral compartments. CT/CT knee LT wo con* [id number] IMPRESSION: 1. No definite acute fracture is identified. 2. There is a very slight change in the cortex along the anterior medial femor al condyle which is indeterminate. Low-level suspicion for fracture. If there i s continued nonweightbearing and suspicion consider MRI evaluation to evaluate for acute marrow edema. 3. Moderate suprapatellar joint effusion.
[2024-03-10 11:02] VITALS: BP 172/90; PULSE 70; RESP 16; O2SAT 97
--- NOTE | 2024-03-10 12:00 | PC.NURSE ---
NURSE HAS BEEN IN PATIENTS ROOM AND SPEAKING WITH SON MULTIPLE TIMES. SON STATES THAT HE STILL WOULD LIKE [facility] PLACEMENT. NURSE EXPLAINED TO PATIENT THAT SHE HAS DEMENTIA AND HAS LUCID PERIODS AND PERIODS WHERE SHE CANNOT REMEMBER ANYTHING. AT APPROXIMATELY 1150, PATIENT SCREAMS FROM ROOM ALERTING PHYSICIAN, TECH, MULTIPLE NURSES, AND MYSELF TO COME TO RUN. PHYSICIAN TRIES TO EXPLAIN TO PATIENT THAT WE HAVE CALLED HER SON AND WE ARE LOOKING FOR [facility] PLACEMENTS. PATIENT TELLS PHYSICIAN TO GET OUT OF MY ROOM. PHYSICIAN LEAVES AND THIS NURSES CONTINUES TO TELL PATIENT ABOUT DISCUSSION WITH HER SON AND HERSELF. PATIENT STATES I HAVE BEEN IN THIS BED FOR 10 HOURS. NURSE APOLOGIZES FOR THE UNCOMFORTABLE BED AND ATTEMPTS TO REORIENT PATIENT, STATING THAT SHE HAS ONLY BEEN HERE FOR 6 HOURS. PATIENT STATES THAT THIS NURSE IS MAKING STUPID STATEMENTS. NURSE TELLS PATIENT THAT SHE IS TELLING HER THE FACTS AND WORKING OFF OF PHYSICIAN ORDERS. PATIENT STATES THAT SHE DOESN'T BELIEVE SHE TOLD THE PHYSICIAN TO LEAVE THE ROOM. PATIENT STATES THAT SHE NO LONGER WANTS TO SPEAK TO ME. NURSE INFORMS TO USE THE CALL LIGHT IF SHE NEEDS ANYTHING AND EXITS ROOM. PROVIDER NOTIFIED. VITALS STABLE.
[2024-03-10 12:07] VITALS: BP 170/84; PULSE 79; RESP 16; O2SAT 97
--- NOTE | 2024-03-10 14:04 | PC.NURSE ---
PATIENT DISCHARGE PAPERWORK GIVEN TO LONGTERM INTEGRITY ENGINEER. OATIENT REPORT CALLED TO CINDY HUDDLESTON.
== END 2024-03-10 14:04 | disposition home or self-care (01) ==
PROVIDERS: Emergency Medicine; Emergency Provider Family Medicine; PCP Family Medicine
DX: M25.562 Pain in left knee (principal); M54.50 Low back pain, unspecified; R53.1 Weakness; R29.6 Repeated falls
CPT/HCPCS: 70450; 71045; 72170; 73562; 73610; 73700; 80053; 82550; 83735; 85025; 93005; 99285